=== PATIENT | female | born 1995 | race Caucasian/White ===

== ENCOUNTER 2020-08-11 10:26 | Inpatient (IN) | payer OTHER ==
[2020-08-11] MEDS ORDERED: PENICILLIN G POTASSIUM 5,000,000 UNIT in DEXTROSE 5%-WATER 100 ML IV ONE (10:42)
[2020-08-11] MEDS ORDERED: RINGERS SOLUTION,LACTATED 1,000 ML IV PRN (10:42)
[2020-08-11] MEDS ORDERED: RINGERS SOLUTION,LACTATED 1,000 ML IV ONE (10:42)
[2020-08-11] MEDS ORDERED: OXYTOCIN 10 UNIT/ML VIAL ONE ×2 (10:45→12:25)
[2020-08-11] MEDS ORDERED: LIDOCAINE 1% INJ-PF (10 MG/ML) 30 ML SDV ONE (10:45)
[2020-08-11] MEDS ORDERED: MISOPROSTOL 0.2 MG TABLET ONE (10:45)
[2020-08-11] MEDS ORDERED: OXYTOCIN/0.9 % SODIUM CHLORIDE 30 UNIT/500 ML RTUINJ ONE (10:45)
[2020-08-11] MEDS ORDERED: PENICILLIN G-K 5 MILLION UNIT VIAL ONE (10:54)
[2020-08-11 11:00] LABS: APPEARANCE,URINE CLEAR; BILIRUBIN,URINE NEGATIVE (NEGATIVE); COLOR,URINE YELLOW; GLUCOSE, URINE NEGATIVE (NEGATIVE); KETONES,URINE NEGATIVE (NEGATIVE); LEUKOCYTE ESTERASE,URINE MODERATE (NEGATIVE); NITRITE,URINE NEGATIVE (NEGATIVE); PROTEIN,URINE NEGATIVE (NEGATIVE); URINE SPECIFIC GRAVITY 1.005; UROBILINOGEN,URINE NEGATIVE mg/dL (<2.0)
--- NOTE | 2020-08-11 11:04 | Admission Physical ---
Datetime Report Generated by CPN: 08/11/2020 11:04 CURRENT ADMISSION Chief Complaint: Uterine Contractions; Suspected Ruptured Membranes Admit Impression : Term, Intrauterine ; Active Labor; Ruptured Membranes Admit Plan: Admit to Unit Admit Plan- Other: Start PCN prophylaxis for GBS+ status ALLERGIES Medication Allergies: No Known Allergies (08/11/2020) PHYSICAL EXAM General: Normal HEENT: Normal Neurologic: Normal Thyroid: Normal Heart: Normal Lungs: Normal Breast: Normal Back: Normal Abdomen: Normal Genitourinary Exam: Normal Extremities: Normal DTRs: Normal Pelvic Type: Adequate Vital Signs: Reviewed FETUS A Monitoring: External US FHR- Baseline: 135 Variability: Moderate 6-25bpm Accelerations: 15X15 Decelerations: None FHR Category: Category I Admit Comment: at 39.4 wks presents c/o strong contractions and leaking of fluid. States GBS+ status. Ve per RN pt is 8 cm. Desires epidural if possible. Records reviewed, pt has had one visit to [facility] on 08/05/20, with our records stating no PNC since January of 2020. Pt had been seen at [facility] early in her , but unsure how many total visits she had there. Per material coordinator, pt has hx of depression/anxiety, hx of alcohol abuse along with vaping, hx hyperthyroidism, anemia. Plan to admit for labor, start PCN prophylaxis and anticipate . Attending MD is Dr Meehan INFORMED CONSENT Assignment: Michael Meehan MD Signature: with User ID: Americo : with User ID: [email or web address]
[2020-08-11 11:23] LABS: URINE AMPHETAMINES SCREEN NEGATIVE; URINE BARBITURATES SCREEN NEGATIVE; URINE BENZODIAZEPINES SCREEN NEGATIVE; URINE COCAINE SCREEN NEGATIVE; URINE MARIJUANA (THC) SCREEN NEGATIVE; URINE METHADONE SCREEN NEGATIVE; URINE PHENCYCLIDINE SCREEN NEGATIVE
[2020-08-11 11:42] LABS: ABSOLUTE EOSINOPHILS # (AUTO) 0.1 10^3/uL (0.0-0.6); ABSOLUTE LYMPHOCYTES (AUTO) 3.1 10^3/uL (0.5-4.7); ABSOLUTE MONOCYTES (AUTO) 0.7 10^3/uL (0.1-1.4); ABSOLUTE NEUT (AUTO) 8.8 10^3/uL (1.7-8.2); BASOPHILS % (AUTO) 0.3 % (0-2); HEMATOCRIT 34.8 % (36.0-47.0); HEMOGLOBIN 11.3 g/dL (12.0-15.5); LYMPHOCYTES % (AUTO) 24.4 % (13-45); MEAN CORPUSCULAR HGB CONC 32.4 g/dL (32.0-36.0); MEAN CORPUSCULAR VOLUME 80 fl (80-97); MONOCYTES % (AUTO) 5.7 % (3-13); PLATELET COUNT 322 10^3/uL (150-450); RED BLOOD COUNT 4.34 10^6/uL (3.72-5.28); SEGMENTED NEUTROPHILS % (AUTO) 68.6 % (42-78); TOTAL CELLS COUNTED % (AUTO) 100 %; WHITE BLOOD COUNT 12.9 10^3/uL (4.0-10.5)
[2020-08-11] MEDS ORDERED: MAGNESIUM HYDROXIDE SUSP 30 ML UDCUP PO PRN (12:34)
[2020-08-11] MEDS ORDERED: BENZOCAINE/MENTHOL AEROSOL SPRAY 56 ML TOP PRN (12:34)
[2020-08-11] MEDS ORDERED: ZOLPIDEM TARTRATE 5 MG TABLET PO PRN (12:34)
[2020-08-11] MEDS ORDERED: NA PHOS,M-B/NA PHOS,DI-BA (ADULT) 133 ML ENEMA PR PRN (12:34)
[2020-08-11] MEDS ORDERED: GLYCERIN/WITCH HAZEL LEAF 1 EACH MED..WIPE TP PRN (12:34)
[2020-08-11] MEDS ORDERED: PSEUDOEPHEDRINE HCL 30 MG TABLET PO PRN (12:34)
[2020-08-11] MEDS ORDERED: PROMETHAZINE HCL 25 MG SUPP.RECT PR PRN (12:34)
[2020-08-11] MEDS ORDERED: MEASLES,MUMPS&RUBELLA VACC/PF 0.5 ML VIAL SUBCUT PRN (12:34)
[2020-08-11] MEDS ORDERED: DIPH/PERTUSS(ACELL)/TETANUS VAC/PF 0.5 ML SYR (>=10YO) IM PRN (12:34)
[2020-08-11] MEDS ORDERED: PROMETHAZINE HCL INJ 25 MG/1 ML VIAL IV PRN (12:34)
[2020-08-11] MEDS ORDERED: DIBUCAINE 1% OINTMENT 28 GM TP PRN (12:34)
[2020-08-11] MEDS ORDERED: OXYTOCIN/0.9 % SODIUM CHLORIDE 30 UNIT/500 ML RTUINJ IV PRN ×2 (12:34→14:10)
[2020-08-11] MEDS ORDERED: PROMETHAZINE HCL 25 MG TABLET PO PRN (12:34)
[2020-08-11] MEDS ORDERED: DIPHENHYDRAMINE HCL 25 MG CAPSULE PO PRN (12:34)
[2020-08-11] MEDS ORDERED: ACETAMINOPHEN 650 MG SUPP.RECT PR PRN (12:34)
[2020-08-11] MEDS ORDERED: ACETAMINOPHEN WITH CODEINE #3 TABLET ONE (13:00)
[2020-08-11] MEDS ORDERED: IBUPROFEN 800 MG TABLET ONE (13:00)
--- NOTE | 2020-08-11 13:11 | Warning Signs in Babies ---
VOD Warning Signs Datetime Report Generated by N: 08/11/2020 13:11 VOD#[id number] -Warning Signs in Babies: Viewed with Parent(s)/Family (08/11/2020 13:11:Laz Adams RN)
[2020-08-11] MEDS: IBUPROFEN 800 MG TABLET PO SCH ×2 (13:13→21:01)
[2020-08-11] MEDS ORDERED: METHYLERGONOVINE MALEATE INJ/PF 0.2 MG/1 ML AMPULE ONE (13:53)
[2020-08-11] MEDS ORDERED: METHYLERGONOVINE MALEATE INJ/PF 0.2 MG/1 ML AMPULE IM ONE (14:08)
[2020-08-11] MEDS ORDERED: MISOPROSTOL 0.2 MG TABLET PR ONE (14:08)
--- NOTE | 2020-08-11 14:28 | PDOC PROGRESS REPORT ---
Subjective-OB Progress Note for:: 08/11/20 - Delivery Day, pt with increased bleeding, called to room to evaluate. Pt feeling dizzy, unable to ambulate to the bathroom. I&O cath yeilds 550 ml of urine. Large amount of clot removed during bimanual exam. IV restarted, Pitocin bolus infusing. Cytotec 200 mcg buccal, then 800 mcg placed rectally. Pt remains A&O Physical Exam (OB) Vital Signs: Intake & Output 08/10/20 08/11/20 08/12/20 06:59 06:59 06:59 Weight 67.7 kg - General General Appearance: Appears well, Alert - Maternal Morbidity 59. Maternal Morbidity (serious complications experinced by the mother ass ociated with labor and delivery: None of the above - Lochia Lochia Amount: Heavy >50 ml Lochia Color: Rubra/Red Lochia Note: QBL after delivery now at 1000 ml Objective-Diagnostic Laboratory: 08/11/20 11:16 08/11/20 08/11/20 08/11/20 10:35 11:16 11:16 WBC 12.9 H RBC 4.34 Hgb 11.3 L Hct 34.8 L MCV 80 MCH 26.0 L MCHC 32.4 RDW 15.0 H Plt Count 322 Seg Neutrophils % 68.6 Urine Color YELLOW Urine Appearance CLEAR Urine pH 7.0 Ur Specific [place] 1.005 Urine Protein NEGATIVE Urine Glucose (UA) NEGATIVE Urine Ketones NEGATIVE Urine Blood MODERATE H Urine Nitrite NEGATIVE Ur Leukocyte Esterase MODERATE H Blood Type A POSITIVE Antibody Screen NEGATIVE Assessment and Plan(PN) Plan:: will check CBC this afternoon, Dr Meehan notified of PPH, IM methergine also given. Will continue to watch pt back in labor & delivery for now. - Time Spent with Patient Time with patient: 15-25 minutes Medications reviewed and adjusted accordingly: Yes - Disposition Anticipated Discharge Disposition: Home, Self Care Anticipated Discharge Timeframe: within 48 hours
[2020-08-11] MEDS ORDERED: PENICILLIN G POTASSIUM 2,500,000 UNIT in DEXTROSE 5%-WATER 50 ML IV SCH (14:45)
[2020-08-11] MEDS ORDERED: AMPICILLIN SOD/SULBACTAM 3 GM VIAL IV ONE (15:45)
[2020-08-11] MEDS ORDERED: AMPICILLIN SOD/SULBACTAM 3 GM VIAL ONE (15:52)
[2020-08-11] MEDS ORDERED: AMPICILLIN SOD/SULBACTAM 3 GM VIAL IV SCH (16:00)
[2020-08-11] MEDS: AMPICILLIN SODIUM/SULBACTAM NA 3 GM in NORMAL SALINE 100 ML IV SCH ×2 (16:11→21:02)
[2020-08-11 16:37] LABS: HEMATOCRIT 33.7 % (36.0-47.0); HEMOGLOBIN 11.1 g/dL (12.0-15.5); MEAN CORPUSCULAR HEMOGLOBIN 26.3 pg (27.0-33.4); MEAN CORPUSCULAR HGB CONC 33.1 g/dL (32.0-36.0); MEAN CORPUSCULAR VOLUME 80 fl (80-97); PLATELET COUNT 312 10^3/uL (150-450); RED BLOOD COUNT 4.23 10^6/uL (3.72-5.28); RED CELL DISTRIBUTION WIDTH 15.1 % (11.5-14.0); WHITE BLOOD COUNT 21.6 10^3/uL (4.0-10.5)
[2020-08-11 16:56] LABS: ABSOLUTE LYMPHOCYTES# (MANUAL) 2.4 10^3/uL (0.5-4.7); ABSOLUTE MONOCYTES # (MANUAL) 0.4 10^3/uL (0.1-1.4); BASOPHILS % (MANUAL) 0 % (0-2); EOSINOPHILS % (MANUAL) 0 % (0-6); LYMPHOCYTES % (MANUAL) 10 % (13-45); MONOCYTES % (MANUAL) 2 % (3-13); SEGMENTED NEUTROPHILS % (MAN) 87 % (42-78); TOTAL CELLS COUNTED 100
[2020-08-11 16:58] LABS: PLATELET COMMENT ADEQUATE; RBC MORPHOLOGY COMMENT NORMO-CYTIC/CHROMIC
[2020-08-11] MEDS: DOCUSATE SODIUM 100 MG CAPSULE PO SCH (17:44)
[2020-08-11] MEDS: FERROUS SULFATE 325 MG TABLET PO SCH (17:44)
[2020-08-11] MEDS: ACETAMINOPHEN WITH CODEINE #3 TABLET PO PRN (19:32)
[2020-08-11] MEDS: MISOPROSTOL 0.2 MG TABLET PO SCH (19:32)
--- NOTE | 2020-08-11 20:00 | Delivery Summary ---
Del Sum A-C Datetime Report Generated by CPN: 08/11/2020 20:00 DELIVERY PERSONNEL DELIVERY PERSONNEL: [id number] Delivery Doctor:: Pao Camargo CNM Labor and Delivery Nurse:: Laz Adams RN Nursery Nurse:: ZAK Duarte Tech/CLOUD ARCHITECT: TESS GormanA II MATERNAL INFORMATION Delivery Anesthesia: None Medications After Delivery: Pitocin 10 Units IM; Pitocin 30 Units in 500ml NS/D5W; Methergine 0.2mg IM; Cytotec 800mcg Per Rectum/Vagina Meds After Delivery Comment: Cytotec 200mcg buccal Delivery QBL: 50 Maternal Complications: Hemorrhage; Maternal Fever Provider Comments: of VFI, mouth bulb suctioned, placed on pts abdoman, stable condition. terminal meconium noted at delivery. Cord clamped and cut after one minute. Cord blood obtained. Perineum intact. Placenta S/C/I, will send to pathology. ff w/ decreased lochia. IM pitocin given due to IV pulled out during delivery. Baby taken to N to transition. Mother and baby left in stable condition, QBL 100 ml. Apgars 8,9. Attending MD is Dr Meehan LABOR SUMMARY EDC: 08/15/2020 00:00 No. Babies in Womb: 1 Attempted: No Labor Anesthesia: None LABOR INFORMATION Reason for Induction: Not Applicable Onset of Labor: 08/11/2020 06:00 Complete Dilatation: 08/11/2020 11:55 Oxytocin: N/A Group B Beta Strep: Positive Antibiotics # of Doses: 1 Antibiotics Time of Last Dose: 08/11/2020 10:59 Name of Antibiotic Given: Penicillin Steroids Given: None Reason Steroids Not Administered: Not Applicable MEMBRANES Membranes Rupture Method: Spontaneous Rupture of Membranes: 08/11/2020 06:00 Length of Rupture (hr): 6.20 Amniotic Fluid Color: Clear STAGES OF LABOR Stage 1 hr: 5 Stage 1 min: 55 Stage 2 hr: 0 Stage 2 min: 17 Stage 3 hr: 0 Stage 3 min: 9 Total Time in Labor hr: 6 Total Time in Labor min: 21 VAGINAL DELIVERY Episiotomy: None Laceration #1: None Laceration Extension #1: N/A Laceration Repair: Not Applicable Sponge Count Correct: N/A Sharps Count Correct: N/A CSECTION DELIVERY Primary Indication: N/A Secondary Indication: N/A CSection Incidence: N/A Labor: N/A Elective: N/A CSection Incision: N/A BABY A INFORMATION Infant Delivery Date/Time: 08/11/2020 12:12 Method of Delivery: Vaginal Nurse Controlled Delivery: No Born in Route : No : N/A Forceps: N/A Vacuum Extraction: N/A Shoulder Dystocia : No PRESENTATION/POSITION BABY A Presentation: Cephalic Cephalic Presentation: Vertex Vertex Position: Left Occipital Anterior Breech Presentation: N/A PLACENTA INFORMATION BABY A Placenta Delivery Time : 08/11/2020 12:21 Placenta Method of Delivery: Spontaneous Placenta Status: Delivered SCORES BABY A Heart Rate 1 min: >100 bpm Resp Effort 1 min: Good Cry Reflex Irritability 1 min: Cough or Sneeze or Pulls Away Muscle Tone 1 min: Active Motion Color 1 min: Blue/Pale SCORE 1 MIN: 8 Heart Rate 5 min: >100 bpm Resp Effort 5 min: Good Cry Reflex Irritability 5 min: Cough or Sneeze or Pulls Away Muscle Tone 5 min: Active Motion Color 5 min: Body [place], Extremities Blue SCORE 5 MIN: 9 INFANT INFORMATION BABY A Gestational Age at Delivery: 39.3 Gestational Status: Full Term- 39- 40.6 Weeks Infant Outcome : Liveborn Condition : Stable Sex: Female IDENTIFICATION BABY A Verification Date/Time: 08/11/2020 12:48 ID Band Number: [id number] Mother's Name Verified: Yes Infant RN Verifying Infant: TMartin,RNC and DSprouse,US WEIGHT/LENGTH BABY A Infant Birthweight (gm): 3764 Weight (lb): 8 Infant Weight (oz): 5 Infant Length (in): 20.00 Infant Length (cm): 50.80 CORD INFORMATION BABY A No. Cord Vessels: 3 Nuchal Cord : N/A Cord Blood Taken: Yes-For Storage (Mom's Blood type +) Suction: Mouth ASSESSMENT BABY A Skin to Skin: No Infant Care By: AShafer,RN BABY B INFORMATION : N/A SIGNATURES Assignment: Michael Meehan MD Signature: with User ID: Americo : with User ID: [email or web address]
--- NOTE | 2020-08-11 20:01 | Birth Certificate Data ---
Cert Data Datetime Report Generated by LEONARDA: 08/11/2020 20:00 CERTIFICATE DATA Delivery Provider: Pao Camargo CNM (08/11/2020 11:21:Laz Adams RN) 47a. Care: No (08/11/2020 11:21:Laz Adams RN) 47b. Date of First Visit: 12/26/2019 00:00 (08/11/2020 11:21:Ana Kinsey RN) 47c. Date of Last Visit: 08/05/2020 00:00 (08/11/2020 11:21:Ana Kinsey RN) 47d. Number of Visits: 8 (08/11/2020 11:21:Ana Kinsey RN) 48a. Number of Prev Live Births: 3 (08/11/2020 11:21:Laz Adams RN) 48b. Now Livin (08/11/2020 11:21:Laz Adams RN) 48c. Live Births Now : 0 (08/11/2020 11:21:QS system process) 48d. Date of Last Live : 01/10/2019 00:00 (08/11/2020 11:21:Laz Adams RN) 48e. Losses: 0 (08/11/2020 11:21:Laz Adams RN) RISK FACTORS IN THIS 49a. Diabetes: No (08/11/2020 11:21:Laz Adams RN) 49b. Hypertension: No (08/11/2020 11:21:Laz Adams RN) 49c. Previous Births: 0 (08/11/2020 11:21:Laz Adams RN) 49d. Stillborns: No (08/11/2020 11:21:Laz Adams RN) 49d. IUGR: No (08/11/2020 11:21:Laz Adams RN) 49e. Infertility Treatment: No (08/11/2020 11:21:Laz Adams RN) 49f. Previous Cesareans: 0 (08/11/2020 11:21:Laz Adams RN) Mother's Height 50b. Height Inches: 63 (08/11/2020 17:27:QS system process) Mother's Weight 51a. Pre- Weight (lbs): 130 (08/11/2020 11:21:Ana Kinsey RN) 51b. Weight at Delivery (lbs): 150 (08/11/2020 17:27:QS system process) Infections Present/Treated 53a. Gonorrhea: No (08/11/2020 11:21:Laz Adams RN) Results this Hospital Visit : Negative (08/11/2020 11:21:Laz Adams RN) 53b. Syphilis: No (08/11/2020 11:21:Laz Adams RN) 53c. Chlamydia: No (08/11/2020 11:21:Laz Adams RN) Results this Hospital Visit: Negative (08/11/2020 11:21:Laz Adams RN) 53d. Hepatitis B: No (08/11/2020 11:21:Laz Adams RN) Results this Hospital Visit: Negative (08/11/2020 11:21:Laz Adams RN) 53e. Hepatitis C: Negative (08/11/2020 11:21:Laz Adams RN) 53h. Mother Tested for HBsAG: No (08/11/2020 11:21:Laz Adams RN) 53j. Test Result: Negative (08/11/2020 11:21:Laz Adams RN) Obstetric Procedures 54a, b, c. Obstetric Procedures: Ultrasound; NST (08/11/2020 11:21:Laz Adams RN) Cigarette Smoking Cigarette Smoking: Former Smoker. [id number] (08/11/2020 11:21:Laz Adams RN) 55a. 3 Months Before Preg - Ci (08/11/2020 11:21:Laz Adams RN) 55b. 1st Trimester of Preg- Ci (08/11/2020 11:21:Laz Adams RN) 55c. 2nd Trimester of Preg- Ci (08/11/2020 11:21:Laz Adams RN) 55d. 3rd Trimester of Preg- Ci (08/11/2020 11:21:Laz Adams RN) Onset of Labor 56a. PROM >12 Hrs: 6.20 (08/11/2020 11:38:QS system process) 56b. Precipitous Labor <3 Hrs: 6 (08/11/2020 11:21:QS system process) 56c. Prolonged Labor > 20 Hrs: 6 (08/11/2020 11:21:QS system process) 57a. Induction of Labor: N/A (08/11/2020 11:21:Laz Adams RN) 57c. Non-Vertex Presentation A: Vertex (08/11/2020 11:21:aLz Adams RN) 57d. Steroids - Lung Mat: None (08/11/2020 11:21:Laz Adams RN) 57d. Steroids - Lung Mat: Not Applicable (08/11/2020 11::Laz Adams RN) 57e. Antibiotics During Labor: 08/11/2020 10:59 (08/11/2020 11:21:Laz Adams RN) 57g. Moderate/Heavy Meconium: Clear (08/11/2020 11:38:Laz Adams RN) 57h. Intolerance of Labor: N/A (08/11/2020 11:21:Laz Adams RN) : N/A (08/11/2020 11:21:Laz Adams RN) 57i. Epidural/Spinal Anesthesia: None (08/11/2020 11:21:Laz Adams RN) Method of Delivery 58a. Forceps - Unsuccessful A: N/A (08/11/2020 11:21:Laz Adams RN) 58b. Vacuum - Unsuccessful A: N/A (08/11/2020 11:21:Laz Adams RN) 58c. Presentation at 58c. Presentation at - A : Vertex (08/11/2020 11:21:Laz Adams RN) 58c. Presentation at - A : N/A (08/11/2020 11:21:Laz Adams RN) 58c. Presentation at - A : Cephalic (08/11/2020 11:21:Laz Adams RN) Final Route and Method of Del 58d. Baby A Route/Delivery: Vaginal (08/11/2020 11:21:Laz Adams RN) 58e. Trial of Labor Attempted: No (08/11/2020 11:21:Laz Adams RN) 58e. Trial of Labor Attempted A: N/A (08/11/2020 11:21:Laz Adams RN) 58e. Trial of Labor Attempted B: N/A (08/11/2020 11:21:Laz Adams RN) Maternal Morbidity 59b. 3rd or 4th Degree Lacs: None (08/11/2020 11:21:Laz Adams RN) Birthweight Baby A: 3764 (08/11/2020 11:21:Reina Meza RN) 60a. Pounds : 8 (08/11/2020 11:21:QS system process) 60b. Ounces: 5 (08/11/2020 11:21:QS system process) 61. GA at Delivery Baby A: 39.3 (08/11/2020 11:21:Laz Adams RN) : Full Term- 39- 40.6 Weeks (08/11/2020 11:21:QS system process) 62a. 5 Minute Baby A: 9 (08/11/2020 11:21:QS system process)
[2020-08-11] MEDS: FAMOTIDINE 20 MG TABLET PO SCH (21:02)
[2020-08-12] MEDS: AMPICILLIN SODIUM/SULBACTAM NA 3 GM in NORMAL SALINE 100 ML IV SCH ×3 (02:03→15:10)
[2020-08-12] MEDS: MISOPROSTOL 0.2 MG TABLET PO SCH ×4 (02:03→20:25)
[2020-08-12] MEDS: IBUPROFEN 800 MG TABLET PO SCH ×3 (06:01→21:46)
[2020-08-12 07:54] LABS: HEMATOCRIT 30.1 % (36.0-47.0); HEMOGLOBIN 10.1 g/dL (12.0-15.5); MEAN CORPUSCULAR HEMOGLOBIN 26.9 pg (27.0-33.4); MEAN CORPUSCULAR HGB CONC 33.6 g/dL (32.0-36.0); MEAN CORPUSCULAR VOLUME 80 fl (80-97); PLATELET COUNT 310 10^3/uL (150-450); RED BLOOD COUNT 3.76 10^6/uL (3.72-5.28); RED CELL DISTRIBUTION WIDTH 15.4 % (11.5-14.0); WHITE BLOOD COUNT 16.5 10^3/uL (4.0-10.5)
[2020-08-12] MEDS: ACETAMINOPHEN WITH CODEINE #3 TABLET PO PRN ×3 (08:40→17:47)
[2020-08-12] MEDS: FERROUS SULFATE 325 MG TABLET PO SCH ×2 (09:32→17:35)
[2020-08-12] MEDS: SENNOSIDES/DOCUSATE 8.6-50 MG 1 EACH TABLET PO SCH (09:32)
[2020-08-12] MEDS: DOCUSATE SODIUM 100 MG CAPSULE PO SCH ×2 (09:32→17:35)
[2020-08-12] MEDS: PRENATAL VITAMIN W DHA CAPSULE PO SCH (09:32)
[2020-08-12] MEDS: FAMOTIDINE 20 MG TABLET PO SCH ×2 (09:32→21:46)
[2020-08-12] MEDS: SERTRALINE HCL 50 MG TABLET PO SCH (10:53)
--- NOTE | 2020-08-12 13:54 | PDOC PROGRESS REPORT ---
Subjective-OB Progress Note for:: 08/12/20 Subjective: 25yo G4 now P4 s/p ppd 1. Pt is ambulating, and voiding without difficulty. Reports pain is well controlled with medication, no concerns today. Physical Exam (OB) Vital Signs: Temp Pulse Resp BP Pulse Ox 98.1 F 83 16 98/59 L 98 08/12/20 08:48 08/12/20 08:00 08/12/20 08:00 08/12/20 08:00 08/12/20 08:00 Intake & Output 08/11/20 08/12/20 08/13/20 06:59 06:59 06:59 Intake Total 994 300 Balance 994 300 Weight 67.7 kg - General General Appearance: Appears well In distress: None - PIH/Pre-Eclampsia Clonus: Negative Headache: Absent Epigastric Pain: No Visual Changes: No - Maternal Morbidity 59. Maternal Morbidity (serious complications experinced by the mother associated with labor and delivery: None of the above - Episiotomy/Laceration Site Condition: N/A - Lochia Lochia Amount: Scant < 10 ml Lochia Color: Rubra/Red - Abdomen Description: Soft Hernia Present: No Fundal Description: Firm Fundal Height: u/u - u/2 - Respiratory Respiratory Status: No respiratory distress - Neurological Cognition: Normal Orientation: AAOx4 - Psychological Associated symptoms: Flat affect Objective-Diagnostic Laboratory: 08/12/20 07:40 08/11/20 08/12/20 16:18 07:40 WBC 21.6 H 16.5 H RBC 4.23 3.76 Hgb 11.1 L 10.1 L Hct 33.7 L 30.1 L MCV 80 80 MCH 26.3 L 26.9 L MCHC 33.1 33.6 RDW 15.1 H 15.4 H Plt Count 312 310 Seg Neutrophils % Not Reportable Assessment and Plan(PN) - Assessment and Plan (1) Acute blood loss anemia Is this a current diagnosis for this admission?: Yes Plan: increase dietary iron and po supplementation (2) (normal spontaneous vaginal delivery) Is this a current diagnosis for this admission?: Yes Plan: routine pp care (3) Limited care Qualifiers: Trimester: unspecified trimester Qualified Code(s): O09.30 - Supervision of with insufficient care, unspecified trimester Is this a current diagnosis for this admission?: Yes Plan: delivered - Time Spent with Patient Time with patient: Less than 15 minutes Medications reviewed and adjusted accordingly: Yes - Disposition Anticipated Discharge Disposition: Home, Self Care Anticipated Discharge Timeframe: within 24 hours
[2020-08-13] MEDS: ACETAMINOPHEN WITH CODEINE #3 TABLET PO PRN (03:14)
[2020-08-13] MEDS: IBUPROFEN 800 MG TABLET PO SCH (05:45)
[2020-08-13 08:41] VITALS: BP 103/59
[2020-08-13] MEDS: DOCUSATE SODIUM 100 MG CAPSULE PO SCH (09:22)
[2020-08-13] MEDS: FAMOTIDINE 20 MG TABLET PO SCH (09:22)
[2020-08-13] MEDS: PRENATAL VITAMIN W DHA CAPSULE PO SCH (09:22)
[2020-08-13] MEDS: FERROUS SULFATE 325 MG TABLET PO SCH (09:22)
[2020-08-13] MEDS: SENNOSIDES/DOCUSATE 8.6-50 MG 1 EACH TABLET PO SCH (09:22)
[2020-08-13] MEDS: SERTRALINE HCL 50 MG TABLET PO SCH (09:22)
--- NOTE | 2020-08-13 09:26 | PDOC DISCHARGE SUMMARY ---
Impression - Admit/DC Date/PCP Admission Date/Primary Care Provider: 08/11/20 10:47 KENNY KAM MD Discharge Date: 08/13/20 - Discharge Diagnosis (1) Acute blood loss anemia Is this a current diagnosis for this admission?: Yes (2) Limited care Is this a current diagnosis for this admission?: Yes (3) (normal spontaneous vaginal delivery) Is this a current diagnosis for this admission?: Yes (4) atony of uterus with hemorrhage Is this a current diagnosis for this admission?: Yes - Additional Information Resuscitation Status: Full Code Discharge Diet: Regular Discharge Activity: Balance Activity w/Rest, Pelvic Rest Referrals: KENNY KAM MD [Primary Care Provider] - Prescriptions: Ibuprofen [Motrin 800 mg Tablet] 800 mg PO Q8HP PRN #60 tablet PRN Reason: Home Medications: Vit No.130/Iron/Folic [ Tablet] 1 each PO DAILY 08/11/20 Sertraline HCl [Zoloft 50 mg Tablet] 100 mg PO DAILY 08/11/20 Ibuprofen [Motrin 800 mg Tablet] 800 mg PO Q8HP PRN #60 tablet 08/13/20 HPI Gestational Age: 39.4 Reason(s) for Admission: Onset of Labor Procedures: NST Intrapartum Procedure(s): Spontaneous Vaginal Delivery Hospital Course 59. Maternal Morbidity (serious complications experinced by the mother associated with labor and delivery: None of the above Results Laboratory Results: WBC 16.5 10^3/uL (4.0-10.5) H 08/12/20 07:40 RBC 3.76 10^6/uL (3.72-5.28) 08/12/20 07:40 Hgb 10.1 g/dL (12.0-15.5) L 08/12/20 07:40 Hct 30.1 % (36.0-47.0) L 08/12/20 07:40 MCV 80 fl (80-97) 08/12/20 07:40 MCH 26.9 pg (27.0-33.4) L 08/12/20 07:40 MCHC 33.6 g/dL (32.0-36.0) 08/12/20 07:40 RDW 15.4 % (11.5-14.0) H 08/12/20 07:40 Plt Count 310 10^3/uL (150-450) 08/12/20 07:40 Lymph % (Auto) Not Reportable 08/11/20 16:18 [place] % (Auto) Not Reportable 08/11/20 16:18 Eos % (Auto) Not Reportable 08/11/20 16:18 Baso % (Auto) Not Reportable 08/11/20 16:18 Absolute Neuts (auto) Not Reportable 08/11/20 16:18 Absolute Lymphs (auto) Not Reportable 08/11/20 16:18 Absolute Monos (auto) Not Reportable 08/11/20 16:18 Absolute Eos (auto) Not Reportable 08/11/20 16:18 Absolute Basos (auto) Not Reportable 08/11/20 16:18 Total Counted 100 08/11/20 16:18 Seg Neutrophils % Not Reportable 08/11/20 16:18 Seg Neuts % (Manual) 87 % (42-78) H 08/11/20 16:18 Lymphocytes % (Manual) 10 % (13-45) L 08/11/20 16:18 Atypical Lymphs % 1 % (0) 08/11/20 16:18 Monocytes % (Manual) 2 % (3-13) L 08/11/20 16:18 Eosinophils % (Manual) 0 % (0-6) 08/11/20 16:18 Basophils % (Manual) 0 % (0-2) 08/11/20 16:18 Abs Neuts (Manual) 18.8 10^3/uL (1.7-8.2) H 08/11/20 16:18 Abs Lymphs (Manual) 2.4 10^3/uL (0.5-4.7) 08/11/20 16:18 Abs Monocytes (Manual) 0.4 10^3/uL (0.1-1.4) 08/11/20 16:18 Absolute Eos (Manual) 0.0 10^3/uL (0.0-0.6) 08/11/20 16:18 Abs Basophils (Manual) 0.0 10^3/uL (0.0-0.2) 08/11/20 16:18 Platelet Comment ADEQUATE 08/11/20 16:18 RBC Morph Comment NORMO-CYTIC/CHROMIC 08/11/20 16:18 Urine Color YELLOW 08/11/20 10:35 Urine Appearance CLEAR 08/11/20 10:35 Urine pH 7.0 (5.0-9.0) 08/11/20 10:35 Ur Specific [place] 1.005 08/11/20 10:35 Urine Protein NEGATIVE mg/dL (NEGATIVE) 08/11/20 10:35 Urine Glucose (UA) NEGATIVE mg/dL (NEGATIVE) 08/11/20 10:35 Urine Ketones NEGATIVE mg/dL (NEGATIVE) 08/11/20 10:35 Urine Blood MODERATE (NEGATIVE) H 08/11/20 10:35 Urine Nitrite NEGATIVE (NEGATIVE) 08/11/20 10:35 Urine Bilirubin NEGATIVE (NEGATIVE) 08/11/20 10:35 Urine Urobilinogen NEGATIVE mg/dL (<2.0) 08/11/20 10:35 Ur Leukocyte Esterase MODERATE (NEGATIVE) H 08/11/20 10:35 Urine Ascorbic Acid NEGATIVE (NEGATIVE) 08/11/20 10:35 Membranes Rupture Cancelled 08/11/20 10:40 Urine Opiates Screen NEGATIVE 08/11/20 10:35 Urine Methadone Screen NEGATIVE 08/11/20 10:35 Ur Barbiturates Screen NEGATIVE 08/11/20 10:35 Ur Phencyclidine Scrn NEGATIVE 08/11/20 10:35 Ur Amphetamines Screen NEGATIVE 08/11/20 10:35 U Benzodiazepines Scrn NEGATIVE 08/11/20 10:35 Urine Cocaine Screen NEGATIVE 08/11/20 10:35 U Marijuana (THC) Screen NEGATIVE 08/11/20 10:35 RPR NONREACTIVE (NONREACTIVE) 08/11/20 11:16 Rubella IgG Antibody 35.60 IU/mL 08/12/20 07:40 Rubella IgG Ab Interp POSITIVE 08/12/20 07:40 Blood Type A POSITIVE 08/11/20 11:16 Antibody Screen NEGATIVE 08/11/20 11:16 Plan Plan of Treatment: f/u at [facility] 4 wks for PPCK Time Spent: Less than 30 Minutes
== END 2020-08-13 14:01 | disposition home or self-care (01) | DRG 806 ==
LOC: LC 10:26 → LR 10:47 → 2S 17:20
PROVIDERS: ADMIT Obstetrics & Gynecology; ATTEND Obstetrics & Gynecology
PROC: 10E0XZZ Delivery of Products of Conception, External Approach (ICD-10-PCS; principal; 2020-08-11)
DX: O99.824 Streptococcus B carrier state complicating childbirth (principal); D62 Acute posthemorrhagic anemia; Z37.0 Single live birth; O72.2 Delayed and secondary postpartum hemorrhage; O90.81 Anemia of the puerperium; Z20.828 Contact with and (suspected) exposure to other viral communicable diseases; Z3A.39 39 weeks gestation of pregnancy
CPT/HCPCS: 36415; 80307; 81005; 85025; 85027; 86592; 86762; 86850; 86900; 86901; 88307; 94760; J0295; J2210; J2540; J2590; J3490; J7050; J7060